=== PATIENT | male | born 1980 | race Caucasian/White ===

== ENCOUNTER 2018-07-19 23:02 | Emergency (ER) | payer MEDICAID ==
[2018-07-19 23:03] VITALS: BMI 20.7
[2018-07-19 23:20] VITALS: TEMP 97.9; O2SAT 100
--- NOTE | 2018-07-19 23:40 | ED PDOC ---
Arrival/HPI - General Chief Complaint: Shortness Of Breath Time Seen by Provider: 07/19/18 23:29 Historian: Patient - History of Present Illness Narrative History of Present Illness (Text): 07/19/18 23:36 A 38 year old male, whose past medical history includes diabetes, presents to the emergency department with a complaint of left sided rib pain. The patient notes that he was trying to sleep when the pain suddenly began. He states that is has been worsening since and he notes associated difficulty breathing secondary to pain. The patient The patient denies any fever, chills, chest pain, abdominal pain, nausea, vomiting, diarrhea, urinary symptoms, back pain, neck pain, headache, dizziness, or any other complaints. PMD: Dr. Millan Time/Duration: 1-3 hours Symptom Onset: Sudden Symptom Course: Unchanged Activities at Onset: Rest, Light Context: Home Past Medical History - Provider Review Nursing Documentation Reviewed: Yes - Cardiac Hx Cardiac Disorders: No - Pulmonary Hx Respiratory Disorders: No - Neurological Hx Neurological Disorder: Yes Hx Vertigo: Yes - HEENT Hx HEENT Disorder: No - Renal Hx Renal Disorder: No - Endocrine/Metabolic Hx Endocrine Disorders: Yes Hx Diabetes Mellitus Type 2: Yes - Hematological/Oncological Hx Blood Disorders: No - Integumentary Hx Dermatological Disorder: No - Musculoskeletal/Rheumatological Hx Musculoskeletal Disorders: No - Gastrointestinal Hx Gastrointestinal Disorders: No - Genitourinary/Gynecological Hx Genitourinary Disorders: No - Psychiatric Hx Psychophysiologic Disorder: No Hx Substance Use: No - Anesthesia Hx Anesthesia: No Hx Anesthesia Reactions: No Hx Malignant Hyperthermia: No Family/Social History - Physician Review Nursing Documentation Reviewed: Yes Family/Social History: No Known Family HX Smoking Status: Never Smoked Hx Alcohol Use: No Hx Substance Use: No Allergies/Home Meds Allergies/Adverse Reactions: Allergies No Known Allergies Allergy (Verified 04/15/18 17:17) Home Medications: Home Meds Medication Instructions Recorded Confirmed RX: Insulin Human Regular [HumuLIN See Protocol SC TID 04/15/18 04/15/18 R] Review of Systems - Physician Review All systems were reviewed & negative as marked: Yes - Review of Systems Constitutional: absent: Fevers ENT: absent: Hearing Changes, Tinnitus Cardiovascular: absent: Chest Pain Gastrointestinal: absent: Abdominal Pain, Diarrhea, Nausea, Vomiting Genitourinary Male: absent: Dysuria, Frequency, Urinary Output Changes Musculoskeletal: Other (Left sided rib pain). absent: Back Pain, Neck Pain Neurological: absent: Headache, Dizziness Endocrine: absent: Diaphoresis Physical Exam Vital Signs Reviewed: Yes Vital Signs Temp Pulse Resp BP Pulse Ox 07/19/18 23:19 97.9 F 110 H 24 148/94 H 100 Temperature: Afebrile Blood Pressure: Hypertensive Pulse: Tachycardic Respiratory Rate: Normal Appearance: Positive for: Well-Appearing, Non-Toxic, Comfortable Pain Distress: None Mental Status: Positive for: Alert and Oriented X 3 - Systems Exam Head: Present: Atraumatic, Normocephalic Pupils: Present: PERRL Extroacular Muscles: Present: EOMI Conjunctiva: Present: Normal Mouth: Present: Moist Mucous Membranes Neck: Present: Normal Range of Motion. No: Meningeal Signs Respiratory/Chest: Present: Clear to Auscultation, Good Air Exchange, Tender to Palpation (Point tenderness left inferior most rib. Tender to palpation reproducible. ). No: Respiratory Distress, Accessory Muscle Use Cardiovascular: Present: Regular Rate and Rhythm, Normal S1, S2. No: Murmurs Abdomen: No: Tenderness, Distention, Peritoneal Signs Back: Present: Normal Inspection. No: CVA Tenderness, Midline Tenderness, Paraspinal Tenderness Upper Extremity: Present: Normal Inspection. No: Cyanosis, Edema Lower Extremity: Present: Normal Inspection. No: Edema Neurological: Present: GCS=15, CN II-XII Intact, Speech Normal Skin: Present: Warm, Dry, Normal Color. No: Rashes Psychiatric: Present: Alert, Oriented x 3, Normal Insight, Normal Concentration Medical Decision Making ED Course and Treatment: Impression: A 38 year old male presents to the emergency department with a complaint of left inferior most rib pain. No abdominal tenderness. Chest pain reproducible to palpation. Given pleuritic chest pain will seek Dimer for possible PE. No crushing chest pain or chest pain radiating to ARM. No hx of smoking, htn, hld or dm2. No diarrhea or constipation. No dark or bloody stool. No /GI complaints. No rashes. No trauma or fall. Likely MSK pain but will also rule out PE. Plan: -- EKG -- CXR -- Labs -- Toradol and IV Fluids -- Reassess and disposition Prior Visits: Notes and results from previous visits were reviewed. Progress Notes EKG: Ordered, reviewed, and independently interpreted the EKG. Rate : 113 BPM Rhythm : Sinus Tachycardia Interpretation : No STEMI 07/20/18 01:28: Patient is refusing CT. Notes his pain is much improved. He seeks to go home. I informed him of elevated dimer and possible blood clot in his lung which can result in or permanent disability. He expresses understanding and wishes to sign out AMA. 07/20/18 01:32: Patient wants to get the CT done. He no longer wishes to sign out AMA. 07/20/18 02:58 Labs largely unremarkable besides Glucose- however Bicarb normal. No signs of DKA on labs. glucose improved to 346 w/ fluids. endorsed continuation of fluids to patient at home and he is agreeable. angio negative for PE pain improved, given return indication and followup clear for d/c home - Lab Interpretations I have reviewed the lab results: Yes - EKG Interpretation Interpreted by ED Physician: Yes Type: 12 lead EKG - Scribe Statement The provider has reviewed the documentation as recorded by the Scribe Antonette Joyce Provider Scribe Attestation: All medical record entries made by the Scribe were at my direction and personally dictated by me. I have reviewed the chart and agree that the record accurately reflects my personal performance of the history, physical exam, medical decision making, and the department course for this patient. I have also personally directed, reviewed, and agree with the discharge instructions and disposition. Disposition/Present on Arrival - Present on Arrival Any Indicators Present on Arrival: No History of DVT/PE: No History of Uncontrolled Diabetes: Yes Urinary Catheter: No History of Decub. Ulcer: No History Surgical Site Infection Following: None - Disposition Have Diagnosis and Disposition been Completed?: Yes Diagnosis: Muscle ache Disposition: HOME/ ROUTINE Disposition Time: 02:59 Patient Problems: Current Active Problems Problem Status Onset Muscle ache Acute Condition: GOOD Discharge Instructions (ExitCare): Hyperglycemia, Adult, Muscle and Bone Pain (DC) Additional Instructions: CAMMY COLEMAN, thank you for letting us take care of you today. Your provider was Jake Dawkins and you were treated for shortness of breath. The emergency medical care you received today was directed at your acute symptoms. If you were prescribed any medication, please fill it and take as directed. It may take several days for your symptoms to resolve. Return to the Emergency Department if your symptoms worsen, do not improve, or if you have any other problems. Please contact your doctor or call one of the physicians/clinics you have been referred to that are listed on the Patient Visit Information form that is included in your discharge packet. Bring any paperwork you were given at discharge with you along with any medications you are taking to your follow up visit. Our treatment cannot replace ongoing medical care by a primary care provider outside of the emergency department. Thank you for allowing the [facility] team to be part of your care today. If you had an X-Ray or CT scan: A Radiologist will review the ED reading if any change in treatment is needed we will contact you. If you had a blood, urine, or wound culture: It will take several days for the results, if any change in treatment is needed we will contact you. If you had an STI test: It will take 48 hours for the results. Please call after 1 week if you have not heard back. Referrals: [facility] [Outside] - Follow up with primary [facility] [Outside] - Follow up with primary [facility] [Outside] - Follow up with primary Dulce Millan MD [Family Provider] - Follow up with primary Forms: [employer] (Sami)
[2018-07-19] MEDS ORDERED: Sodium Chloride 0.9% 1,000 ML IV STA (23:43)
[2018-07-19] MEDS ORDERED: Sodium Chloride 0.9% 1,000 ML IV SCH (23:45)
[2018-07-19 23:52] LABS: BASO # 0.02 K/mm3 (0.0-2.0); BASO % 0.4 % (0.0-3.0); EOS # 0.1 (0.0-0.7); GRAN # 2.63 (1.4-6.5); GRAN % 52.6 % (50.0-68.0); HEMOGLOBIN 14.1 g/dL (14.0-18.0); LYMPH % 39.4 % (22.0-35.0); MEAN CELL VOLUME 72.2 fl (80.0-105.0); MEAN CORPUSCULAR HEMOGLOBIN 24.5 pg (25.0-35.0); MEAN PLATELET VOLUME 10.3 fl (7.0-11.0); MONO # 0.3 (0.1-0.6); MONO % 6.6 % (1.0-6.0); RBC 5.75 10^6/uL (3.5-6.1); RED CELL DISTRIBUTION WIDTH 12.8 % (11.5-14.5)
[2018-07-20 00:17] LABS: VENOUS BLOOD GAS BASE EXCESS 0.7 mmol/L (0.0-2.0); VENOUS BLOOD GAS PO2 86 mm/Hg (30-55); VENOUS BLOOD PH 7.41 (7.32-7.43)
[2018-07-20 00:22] LABS: ALB/GLOB RATIO 1.4 (1.1-1.8); ALBUMIN 4.4 g/dL (3.0-4.8); ALT/SGPT 40 U/L (7-56); AST/SGOT 29 U/L (17-59); BLOOD UREA NITROGEN 15 mg/dL (7-21); GFR NON-AFRICAN AMERICAN > 60; LIPASE 220 U/L (23-300)
[2018-07-20] MEDS ORDERED: Iohexol 350 MG/100 ML VIAL ONE (00:50)
[2018-07-20] MEDS ORDERED: Iohexol 300 100 ML IJ ONE (00:50)
[2018-07-20 04:17] VITALS: BP 128/89; PULSE 95; RESP 18
--- NOTE | 2018-07-20 08:49 | RAD ---
Date of service: 07/20/2018 HISTORY: abd pain/ rib pain COMPARISON: 04/15/2018 TECHNIQUE: Chest PA and lateral FINDINGS: LUNGS: No active pulmonary disease. PLEURA: No significant pleural effusion identified. No pneumothorax apparent. CARDIOVASCULAR: No aortic atherosclerotic calcification present. Normal cardiac size. No pulmonary vascular congestion. OSSEOUS STRUCTURES: No significant abnormalities. VISUALIZED UPPER ABDOMEN: Normal. OTHER FINDINGS: None. IMPRESSION: No active disease.
--- NOTE | 2018-07-20 09:16 | CARD ---
APPROVED REPORT Date of service: 07/19/2018 EKG Measurement Heart [id number] <Conclusion> Sinus tachycardia RVCD Nonspecific ST and T wave abnormality No change
--- NOTE | 2018-07-20 09:17 | CT ---
Date of service: 07/20/2018 PROCEDURE: CT Chest with contrast (Pulmonary Angiogram) HISTORY: +dimer, L rib pain COMPARISON: None available. TECHNIQUE: Axial computed tomography images were obtained of the chest in the pulmonary arterial phase of enhancement. Coronal and sagittal reformatted images were created and reviewed. Intravenous contrast dose: Radiation dose: Total exam DLP = 313.92 mGy-cm. This CT exam was performed using one or more of the following dose reduction techniques: Automated exposure control, adjustment of the mA and/or kV according to patient size, and/or use of iterative reconstruction technique. FINDINGS: PULMONARY ARTERIES: Unremarkable. No pulmonary embolism. AORTA: No acute findings. No thoracic aortic aneurysm. No aortic atherosclerotic calcification or mural plaque present. LUNGS: Unremarkable. No nodule, mass or pulmonary consolidation. PLEURAL SPACES: Unremarkable. No effusion or pneumothorax. HEART: Unremarkable. No cardiomegaly. No significant pericardial effusion. LYMPH NODES: No lymphadenopathy. BONES, CHEST WALL: Unremarkable. No fracture or destructive lesion OTHER FINDINGS: Large mass in the right hepatic lobe possibly representing a hemangioma. Recommend correlation with MRI with contrast. IMPRESSION: Large mass in the right hepatic lobe possibly representing a hemangioma. Recommend correlation with MRI with contrast. No pulmonary embolus.
== END 2018-07-20 03:14 | disposition home or self-care (01) ==
LOC: ED 23:02
DX: M79.10 Myalgia, unspecified site (principal); E11.9 Type 2 diabetes mellitus without complications
CPT/HCPCS: 71046; 71275; 80053; 82803; 82948; 83690; 83735; 85025; 85378; 93005; 96374; 99283; J1885; J7030; Q9967

== ENCOUNTER 2018-08-06 23:21 | Emergency (ER) | payer MEDICAID ==
[2018-08-06 23:28] VITALS: BMI 20.9
[2018-08-06] MEDS ORDERED: Insulin Regular 1 UNITS/0.01 ML ML IVP STA ×2 (23:43→23:54)
[2018-08-06] MEDS ORDERED: Sodium Chloride 0.9% 1,000 ML IV STA (23:43)
[2018-08-06 23:57] VITALS: TEMP 98.9
--- NOTE | 2018-08-06 23:58 | ED PDOC ---
Arrival/HPI - General Chief Complaint: High Blood Sugar Time Seen by Provider: 08/06/18 23:22 Historian: Patient - History of Present Illness Narrative History of Present Illness (Text): 08/06/18 23:56 A 38 year old male, whose past medical history includes diabetes type 2 and vertigo, presents to the emergency department complaining of hyperglycemia. Blood sugar measurement at home was 477. Patient reports checked blood sugar level 4-5 times and found each time to be a high level. States he at sugary foods, and took 7 units of insulin. Checked again, still high. So prior to calling ambulance, took 3 more units. Patient mentions experiencing slight shortness of breath, although he states this may be because he feels anxious. Patient denies any chest pain, or any other complaints at this time. Past Medical History - Provider Review Nursing Documentation Reviewed: Yes - Infectious Disease Hx of Infectious Diseases: None - Cardiac Hx Cardiac Disorders: No - Pulmonary Hx Respiratory Disorders: No - Neurological Hx Neurological Disorder: Yes Hx Vertigo: Yes - HEENT Hx HEENT Disorder: No - Renal Hx Renal Disorder: No - Endocrine/Metabolic Hx Endocrine Disorders: Yes Hx Diabetes Mellitus Type 2: Yes - Hematological/Oncological Hx Blood Disorders: No - Integumentary Hx Dermatological Disorder: No - Musculoskeletal/Rheumatological Hx Musculoskeletal Disorders: No - Gastrointestinal Hx Gastrointestinal Disorders: No - Genitourinary/Gynecological Hx Genitourinary Disorders: No - Psychiatric Hx Psychophysiologic Disorder: No Hx Substance Use: No - Anesthesia Hx Anesthesia: No Hx Anesthesia Reactions: No Hx Malignant Hyperthermia: No Family/Social History - Physician Review Nursing Documentation Reviewed: Yes Family/Social History: No Known Family HX Smoking Status: Never Smoked Hx Alcohol Use: No Hx Substance Use: No Allergies/Home Meds Allergies/Adverse Reactions: Allergies No Known Allergies Allergy (Verified 04/15/18 17:17) Home Medications: Home Meds Medication Instructions Recorded Confirmed RX: Insulin Human Regular [HumuLIN See Protocol SC TID 04/15/18 04/15/18 R] Review of Systems - Physician Review All systems were reviewed & negative as marked: Yes - Review of Systems Respiratory: SOB (slightly, although patient states this may be because he feels anxious) Cardiovascular: absent: Chest Pain Psychiatric: Anxiety Physical Exam - Physical Exam Narrative Physical Exam (Text): Gen: VS reviewed, alert, well developed, well nourished, nontoxic, mild distress, anxious. ENT: normal pharynx. Eye: EOMI, PERRL. Neck: no JVD, supple, no adenopathy. CV: regular rate, regular rhythm, no rubs, no murmur, no gallops, S1, S2, pulses equal and strong. Pulm: no distress, clear to auscultation, no wheeze, no rhonchi, breath sounds equal, no rales. Abd: soft, nontender, no guarding, no rebound, no rigidity, normal bowel sounds. Ext: no edema. Skin: good color, no rash, no cyanosis. Psych: responds appropriately to questions, normal affect. Neuro: oriented x 3, CN2-12 intact grossly, motor intact, sensation intact. Appearance: Positive for: Well-Appearing, Non-Toxic, Comfortable Pain Distress: None Mental Status: Positive for: Alert and Oriented X 3 Finger Stick Blood Glucose: 477 Medical Decision Making ED Course and Treatment: 08/06/18 23:59 Impression: 38 year old male with hyperglycemia. No acute findings on physical examination except patient appears anxious. Plan: -- Chest X-ray -- Labs -- Urinalysis -- Insulin Regular [HumuLIN R] -- IV Fluids -- Reassess and disposition Prior Visits: Notes and results from previous visits were reviewed. Patient was last seen here in the emergency department on 07/19/2018 for left-sided rib pain. Patient was discharged home. Progress Notes: 08/11/18 19:53 patient was seen for hyperglycemia. uncomplicated, patient two separate doses of insulin prior to presenting to the [facility] department. tasia refused insulin dosing in the Emergency department. patient insisted to leave the Emergency department as her was feeling better and he was discharged in stable condition. - RAD Interpretation Narrative RAD Interpretations (Text): 08/07/18 02:10 cxr my read: no focal infiltrate, no ptx, no wide mediastinum Radiology Orders: 08/06/18 23:55 CHEST PORTABLE [RAD] Stat - Medication Orders Current Medication Orders: Sodium Chloride (Sodium Chloride 0.9%) 1,000 mls @ 999 mls/hr IV .Q1H1M STA Stop: 08/07/18 00:43 Insulin Human Regular (Humulin R) 6 units IVP STAT STA Stop: 08/06/18 23:55 - Scribe Statement The provider has reviewed the documentation as recorded by the Santos Couch Provider Scribe Attestation: All medical record entries made by the Scribe were at my direction and personally dictated by me. I have reviewed the chart and agree that the record accurately reflects my personal performance of the history, physical exam, medical decision making, and the department course for this patient. I have also personally directed, reviewed, and agree with the discharge instructions and disposition. Disposition/Present on Arrival - Present on Arrival Any Indicators Present on Arrival: No History of DVT/PE: No History of Uncontrolled Diabetes: Yes Urinary Catheter: No History of Decub. Ulcer: No History Surgical Site Infection Following: None - Disposition Have Diagnosis and Disposition been Completed?: Yes Diagnosis: Hyperglycemia, Anxiety Disposition: HOME/ ROUTINE Disposition Time: 19:55 Patient Plan: Discharge Condition: STABLE Discharge Instructions (ExitCare): Hyperglycemia, Adult, Anxiety, Adult (DC) Additional Instructions: return for any new or worsening symptoms. Referrals: [facility] [Outside] - Follow up with primary Reed Singleton MD [Staff Provider] - Follow up with primary Dulce Millan MD [Primary Care Provider] - Follow up with primary Forms: [employer] (Armenian)
[2018-08-07 00:28] LABS: PH,URINE 6.5 (4.7-8.0); URINE BILIRUBIN NEGATIVE (NEGATIVE); URINE BLOOD NEGATIVE (NEGATIVE); URINE GLUCOSE (UA) >=1000 mg/dL (NEGATIVE); URINE LEUKOCYTE ESTERASE NEGATIVE Leu/uL (NEGATIVE); URINE PROTEIN NEGATIVE mg/dL (<30 mg/dL); URINE UROBILINOGEN 0.2 E.U./dL (<1 E.U./dL)
[2018-08-07 00:29] LABS: URINE APPEARANCE CLEAR (CLEAR); URINE COLOR YELLOW (YELLOW)
[2018-08-07 00:35] LABS: BASO # 0.03 K/mm3 (0.0-2.0); BASO % 0.8 % (0.0-3.0); EOS # 0.1 (0.0-0.7); EOS % 2.1 % (1.5-5.0); GRAN # 1.73 (1.4-6.5); GRAN % 46.1 % (50.0-68.0); HEMOGLOBIN 13.7 g/dL (14.0-18.0); LYMPH # 1.7 (1.2-3.4); LYMPH % 45.9 % (22.0-35.0); MEAN CELL VOLUME 73.3 fl (80.0-105.0); MEAN CORPUSCULAR HEMOGLOBIN 24.5 pg (25.0-35.0); MEAN CORPUSCULAR HGB CONC 33.4 g/dl (31.0-37.0); MEAN PLATELET VOLUME 10.5 fl (7.0-11.0); MONO # 0.2 (0.1-0.6); MONO % 5.1 % (1.0-6.0); RBC 5.59 10^6/uL (3.5-6.1); RED CELL DISTRIBUTION WIDTH 12.8 % (11.5-14.5); WHITE BLOOD COUNT 3.8 10^3/uL (4.5-11.0)
[2018-08-07 00:39] LABS: TROPONIN I < 0.01 ng/mL
[2018-08-07 01:10] LABS: ALB/GLOB RATIO 1.5 (1.1-1.8); ALBUMIN 4.1 g/dL (3.0-4.8); ALT/SGPT 43 U/L (7-56); AST/SGOT 21 U/L (17-59); BLOOD UREA NITROGEN 21 mg/dL (7-21); CALCIUM 9.3 mg/dL (8.4-10.5); GFR NON-AFRICAN AMERICAN > 60
[2018-08-07 02:46] VITALS: BP 142/89; PULSE 72; RESP 14; O2SAT 100
--- NOTE | 2018-08-07 08:16 | RAD ---
HISTORY: dyspnea COMPARISON: Chest x-ray performed 07/20/18 TECHNIQUE: Chest, one view. FINDINGS: LUNGS: No focal consolidation. Please note that chest x-ray has limited sensitivity for the detection of pulmonary masses. PLEURA: No significant pleural effusion identified. No definite pneumothorax . CARDIOVASCULAR: Heart size appears within normal limits. No significant atherosclerotic calcification present. OSSEOUS STRUCTURES: No acute osseous abnormality identified. VISUALIZED UPPER ABDOMEN: Unremarkable. OTHER FINDINGS: None. IMPRESSION: No focal consolidation.
== END 2018-08-07 02:45 | disposition home or self-care (01) ==
LOC: ED 23:21
DX: E11.65 Type 2 diabetes mellitus with hyperglycemia (principal); F41.9 Anxiety disorder, unspecified
CPT/HCPCS: 71045; 80053; 81003; 82948; 84484; 85025; 96360; 99284; J7030